=== PATIENT | female | born 1970 | race African-American/Black ===

== ENCOUNTER 2016-08-07 23:50 | Emergency (ER) | payer BC ==
[~2016-08-07 23:50] MED LIST: AMB10 PO; BACDS PO; BUSPAR15 M1 PO; CEFT5 PO; GLUCPH PO; H5 PO; HYCODAN1 M1 PO; HYDRALAZINE; I20 PO; LIPITOR10 PO; LORT7 PO; NEUR600 PO; PHENERGAN25 MG/ML PO; PLAVIX PO; PR25 PO; PRAVACHOL40 MG PO; REMERON30 MG PO; ROXICODONE15 MG PO; SAPHRIS10 MG SL; SEROQUEL300 MG PO; SEROQUEL400 MG PO; TRAZ100 PO; XANAX1 MG PO; XANAX2 MG PO; ZANAFLEX 4 MG TA4 MG PO; ZOFRAN ODT4 MG PO; ZOL100 PO
== END 2016-08-08 03:34 | disposition home or self-care (01) ==
LOC: ER 23:50
DX: G89.29 Other chronic pain (principal); M54.5 Low back pain; Z88.5 Allergy status to narcotic agent; Z88.6 Allergy status to analgesic agent; Z88.8 Allergy status to other drugs, medicaments and biological substances; Z79.899 Other long term (current) drug therapy
CPT/HCPCS: 96372; 99283; J1170

== ENCOUNTER 2016-09-03 10:37 | Emergency (ER) | payer BC | END 2016-09-03 10:56 | disposition home or self-care (01) | LOC: ER 10:37 | DX: M54.5 Low back pain (principal); G89.29 Other chronic pain; F31.9 Bipolar disorder, unspecified; F17.200 Nicotine dependence, unspecified, uncomplicated; Z98.51 Tubal ligation status; Z98.890 Other specified postprocedural states; Z87.442 Personal history of urinary calculi; Z88.6 Allergy status to analgesic agent; Z88.0 Allergy status to penicillin; Z88.5 Allergy status to narcotic agent | CPT/HCPCS: 99283 ==

== ENCOUNTER 2016-10-15 18:50 | Emergency (ER) | payer BC | END 2016-10-15 19:59 | disposition home or self-care (01) | LOC: ER 18:50 | DX: L29.9 Pruritus, unspecified (principal); Z87.442 Personal history of urinary calculi; F31.9 Bipolar disorder, unspecified; F17.200 Nicotine dependence, unspecified, uncomplicated; Z88.6 Allergy status to analgesic agent; Z86.19 Personal history of other infectious and parasitic diseases; Z88.0 Allergy status to penicillin; Z88.5 Allergy status to narcotic agent; Z88.8 Allergy status to other drugs, medicaments and biological substances; Z79.899 Other long term (current) drug therapy | CPT/HCPCS: 96372; 99283 ==